=== PATIENT | male | born 1975 | race Native Hawaiian/Other Pacific Islander ===

== ENCOUNTER 2017-11-29 16:43 | Emergency (ER) | payer BC ==
[~2017-11-29] VITALS: Ht 175.3 cm; Wt 95.3 kg
== END 2017-11-29 18:01 | disposition home or self-care (01) ==
LOC: ED 16:43
DX: S50.11XA Contusion of right forearm, initial encounter (principal); W20.8XXA Other cause of strike by thrown, projected or falling object, initial encounter; Y92.89 Other specified places as the place of occurrence of the external cause
CPT/HCPCS: 96372; 99283; J1885

== ENCOUNTER 2020-08-27 08:17 | Outpatient (CLI) | payer BC ==
[2020-08-27 09:08] LABS: POTASSIUM 3.9 mmol/L (3.6-5.2)
[2020-08-27 09:56] LABS: PLATELET COUNT 198 K/uL (142-355)
== END 2020-08-27 22:43 | disposition home or self-care (01) ==
LOC: LABW 08:17
PROVIDERS: Family Medicine
DX: E11.9 Type 2 diabetes mellitus without complications (principal); I10 Essential (primary) hypertension; R74.8 Abnormal levels of other serum enzymes; E78.2 Mixed hyperlipidemia; R53.83 Other fatigue; R35.1 Nocturia; R79.89 Other specified abnormal findings of blood chemistry
CPT/HCPCS: 36415; 80053; 80061; 81000; 83036; 84153; 84403; 84439; 84443; 85027

== ENCOUNTER → 2021-01-26 | Outpatient (CLI) | payer BC, OTHER | LOC: INF 11:35 | PROVIDERS: ATTEND Internal Medicine | DX: Z23 Encounter for immunization (principal) | CPT/HCPCS: 96372 ==

== ENCOUNTER 2021-02-17 14:54 | Outpatient (CLI) | payer BC, OTHER | END 2021-02-17 21:33 | disposition home or self-care (01) | LOC: INF 14:54 | PROVIDERS: ATTEND Internal Medicine | DX: Z23 Encounter for immunization (principal) | CPT/HCPCS: 96372 ==